=== PATIENT | female | born 1990 ===

== ENCOUNTER → 2021-08-31 | Day surgery (SDC) | payer OTHER ==
[~2021-08-31] VITALS: Ht 165.1 cm; Wt 94.8 kg
[~2021-08-31] MED LIST: AMOXICILLIN500 M2 PO; BRIN10TA PO; DOXEPIN HCL100 MG PO; EFFEXOR XR150 MG PO; LITHIUM CARBON300 M1 PO; QUETIAPINE FUM100 MG PO
[2021-08-31 09:42] LABS: BASOPHIL 0.5 % (0-2); EOSINOPHIL 1.9 % (0-5); HCT 44.9 % (37.0-47.0); HGB 15.2 g/dl (12.5-16.0); LYMPHOCYTE 42.2 % (15-48); MCH 29.8 pg (25.0-31.0); MCHC 33.9 g/dL (32.0-36.0); MONOCYTE 6.1 % (0-12); NEUTROPHIL 48.9 % (41-80); NRBC 0; PLT 359 K/uL (150-400); RDW 13.2 % (11.5-14.0); WBC 14.7 K/uL (4.0-10.5)
== END | disposition home or self-care (01) ==
LOC: FAS 08:20
PROVIDERS: Oral & Maxillofacial Surgery
DX: K02.9 Dental caries, unspecified (principal); K04.7 Periapical abscess without sinus; F39 Unspecified mood [affective] disorder; F20.9 Schizophrenia, unspecified; J45.909 Unspecified asthma, uncomplicated; Z88.1 Allergy status to other antibiotic agents; Z88.8 Allergy status to other drugs, medicaments and biological substances; Z91.040 Latex allergy status; Z79.899 Other long term (current) drug therapy
CPT/HCPCS: D7140; D7210; 36415; 85025; J1100; J2250; J2704; J3010; J7120